=== PATIENT | male | born 1965 | race African-American/Black ===

== ENCOUNTER 2023-07-12 08:21 | Outpatient (CLI) | payer BC, SELFPAY ==
--- NOTE | ~2023-07-12 | XR_ITS ---
EXAMINATION: CYSTOGRAM DATE: 07/12/2023 09:27 INDICATION: Postoperative urinary retention. TECHNIQUE: Initial electric brain wave equipment mechanic radiograph of the pelvis was performed. There was retrograde administration of 250 mL Omnipaque 350 mixed with saline contrast into patient's existing Thorpe catheter. Fluorosco pic images of the pelvis were obtained including AP and left and right oblique projections. A post-vo id image was also performed. Total of 1 overhead radiograph and 7 fluoroscopic images were recorded. Fluoroscopy exposure time was 0.3 minutes. COMPARISON: Reported prior outside imaging has not been submitted there is no prior imaging at this day [facility] for comparison. FINDINGS/IMPRESSION: Relatively symmetric extensions of extraluminal contrast can be seen extending posterolaterally from the left and right sides of the region of the anastomosis suspicious for persistence of the patient r eported prior leak or differential would include reflux of contrast into the bulbourethral ducts/Cowp er's glands. Correlate with prior imaging. Reviewed, dictated and finalized at location A. ANCE AND CONTROL SYSTEM ENGINEER
== END 2023-07-12 08:22 | disposition home or self-care (01) ==
LOC: ANHIMG 08:28
PROVIDERS: PCP Family Medicine; Visit Provider Physician Assistant
DX: N99.89 Other postprocedural complications and disorders of genitourinary system (principal)
CPT/HCPCS: 51600; 74430; Q9967